=== PATIENT | male | born 1935 | race Caucasian/White ===

== ENCOUNTER → 2018-01-15 | Outpatient (CLI) | payer MEDICARE, BC ==
[~2018-01-15] MED LIST: ASPI325T17 PO; ASPI81TA59 PO; BUTA-177 PO; BUTA1CAP59 PO; CENTRUM SILVER PO; DILT30TA33 PO; GALA4TAB5 PO; GALA8TAB PO; GLUC-121 PO; LORA-445 PO; MEMA10TA PO; MEMA5TAB PO; METO25TA35 PO; NICO-487 TD; PANT40TA3 PO; TRAM50TA2 PO; VITAMIN D3 PO
== END | disposition home or self-care (01) ==
LOC: CVU 15:16
PROVIDERS: ATTEND Internal Medicine Cardiovascular Disease
DX: I08.0 Rheumatic disorders of both mitral and aortic valves (principal); I48.0 Paroxysmal atrial fibrillation; Z95.1 Presence of aortocoronary bypass graft
CPT/HCPCS: 0399T; 93306

== ENCOUNTER 2019-08-09 13:26 | Inpatient (IN) | payer MEDICARE, BC ==
[~2019-08-09] VITALS: Ht 190.5 cm; Wt 72.2 kg
[~2019-08-09 13:26] MED LIST changes: +DIGO125T PO
[2019-08-09] MEDS ORDERED: NORCO PO (13:58)
[2019-08-09] MEDS ORDERED: SEROQUEL PO (13:58)
--- NOTE | 2019-08-09 13:58 | NUR ---
PT PRESENTS TO ED BY AMBULANCE, PER EMS PT HAS ALZHIEMERS AND HAS BECOME COMBATIVE WITH . TOLD EMS THAT SHE NO LONGER FEELS ABLE TO CARE FOR PATIENT AND WOULD LIKE A MEDICAL EVAL AND PLACEMENT TO MEMORY CARE. PER EMS, [employer] WAS ON SCENE SPEAKING WITH . PT IS A&O TO PERSON WHICH IS BASELINE PER EMS. PT DENIES PAIN, RESPS ARE EVEN AND UNLABORED. PT FOLLOWS SOME COMMANDS AND IS SPEAKING CLEARLY. PT IS COOPERATIVE AT THIS TIME. EKG TAKEN ON ARRIVAL BY EDT, PT ATTACHED TO BP AND SPO2 MONITORS. PIV PLACED, LABS DRAWN. PT PLACED IN GOWN AND GIVEN WARM BLANKET. REPORT GIVEN TO RN'S CHARLEY AND CARLI, WHO ARE TO ASSUME CARE AT THIS TIME.
[2019-08-09 14:05] LABS: BASOPHILS # (AUTO) 0.03 x10^3/uL (0-0.1); BASOPHILS % (AUTO) 0 % (0-1); EOSINOPHILS # (AUTO) 0.02 x10^3/uL (0-0.4); EOSINOPHILS % (AUTO) 0 % (1-7); LYMPHOCYTES # (AUTO) 2.27 x10^3/uL (1-3.4); LYMPHOCYTES % (AUTO) 26 % (22-44); MD NO; MEAN CORPUSCULAR HEMOGLOBIN 28.5 pg (27.5-34.5); MEAN CORPUSCULAR HGB CONC 32.8 g/dL (33.2-36.2); MEAN CORPUSCULAR VOLUME 86.9 fL (81-97); MEAN PLATELET VOLUME 8.5 fL (7.4-10.4); MONOCYTES # (AUTO) 0.67 x10^3/uL (0.2-0.8); MONOCYTES % (AUTO) 8 % (2-9); NEUTROPHILS # (AUTO) 5.74 x10^3/uL (1.8-6.8); NEUTROPHILS % (AUTO) 66 % (42-75); PLATELET COUNT 217 x10^3/uL (130-400); RED BLOOD COUNT 5.23 x10^6/uL (4.38-5.82); RED CELL DISTRIBUTION WIDTH 13.8 % (9.4-14.8)
--- NOTE | 2019-08-09 14:05 | NUR ---
REPORT RECEIVED FROM JEWELL WOOD. PLAN OF CARE DISCUSSED. JEWELL WOOD COMPLETED PHYSICAL ASSESSMENT, PATIENT HAS HX ALZHEIMERS AND ORIENTED TO SELF. HAD STATED TO [facility] INCREASE IN PHYSICAL AGGRESSION. JEWELL WOOD STATED NO NEED FOR SITTER AT THIS TIME. CURTAIN TO PATIENT ROOM OPEN, IN LINE OF SIGHT OF RN AT COMPUTER STATION. WILL CONTINUE TO EVALUATE NEED FOR SITTER AND PATIENT DEMEANOR.
--- NOTE | 2019-08-09 14:10 | NUR ---
ASSOCIATE PROFESSOR OF THEATRE TO ROOM
[2019-08-09 14:12] LABS: ALBUMIN 3.4 g/dL (3.4-5.0); ANION GAP 6 mmol/L (5-15); CALCIUM 9.1 mg/dL (8.5-10.1); CHLORIDE 107 mmol/L (98-107); SALICYLATE LEVEL < 1.7 mg/dL (2.8-20.0)
[2019-08-09 14:15] LABS: ALANINE AMINOTRANSFERASE 22 U/L (12-78); BILIRUBIN,TOTAL 0.9 mg/dL (0.2-1.0); CREATININE 0.96 mg/dL (0.7-1.3); TOTAL PROTEIN 6.7 g/dL (6.4-8.2); TROPONIN I < 0.015 ng/mL (0.000-0.045)
[2019-08-09 14:17] LABS: ALKALINE PHOSPHATASE 50 U/L (45-117)
--- NOTE | 2019-08-09 14:44 | NUR ---
PATIENT RESTING ON GURNEY, RESPIRATIONS EVEN AND UNLABORED. FAMILY IN ROOM, WAITING FOR ROOM ASSIGNMENT. DENIES NEEDS AT THIS TIME.
--- NOTE | 2019-08-09 15:30 | NUR ---
FOOD TRAY ORDERED. SOFT FOODS ASKED FOR. PATIENT RESTING, RESPIRATIONS EVEN AND UNLABORED, FAMILY IN ROOM, DENIES NEEDS AT THIS TIME.
--- NOTE | 2019-08-09 16:02 | NUR ---
UNABLE TO CONTINUE Q1HR VITAL SIGN MONITORING, BP CUFF AND SPO2 SENSOR AGITATING PATIENT. PATIENT IS PINK, WARM, AND DRY, NO ACUTE DISTRESS, VSS AT THIS POINT, WILL CONTINUE WIT HQ4HR VITAL SIGNS.
--- NOTE | 2019-08-09 17:23 | NUR ---
PT SITTING UP IN [facility], REARRANGING LINENS. NAD NOTED. PT REMAINS ALERT AND ORIENTED TO SELF ONLY. PT COOPERATIVE BUT REQUIRES CONSTANT REDIRECTION. Addendum: 08/09/19 at 1726 by LWEGENER SITTER REQUESTED
[2019-08-09] MEDS ORDERED: ONDANSETRON ODT 4 MG PO PRN (17:30)
[2019-08-09] MEDS ORDERED: ONDANSETRON 2MG/ML, 2ML IVPush PRN (17:30)
[2019-08-09] MEDS ORDERED: POLYETHYLENE GLYCOL 17 GM PACKET PO PRN (17:30)
[2019-08-09] MEDS ORDERED: BISACODYL 10 MG SUPP PR PRN (17:30)
[2019-08-09] MEDS ORDERED: PROMETHAZINE 25 MG/ML, 1ML IM PRN (17:30)
[2019-08-09] MEDS ORDERED: DOCUSATE 100 MG CAPSULE PO PRN (17:30)
[2019-08-09] MEDS ORDERED: ACETAMINOPHEN 325 MG TABLET PO PRN (17:30)
[2019-08-09] MEDS ORDERED: OXYcodone IR 5MG TABLET PO PRN (17:30)
[2019-08-09] MEDS ORDERED: hydrALAzine 20 MG/ML, 1ML IVPush PRN (17:30)
[2019-08-09] MEDS ORDERED: DIAZEPAM 5 MG/ML, 2ML ONE (17:32)
--- NOTE | 2019-08-09 17:38 | NUR ---
PT OUT OF BED AND REQUIRING MULTIPLE STAFF FOR REDIRECTION. ERP AWARE. PT MEDICATED PER EMAR. TECH AT BEDSIDE. SPO2 MONITORING IN PLACE. LIGHTS OFF AND PT POSITIONED FOR COMFORT.
[2019-08-09] MEDS ORDERED: DIAZEPAM 5 MG/ML, 2ML IV ONE (18:00)
--- NOTE | 2019-08-09 18:16 | NUR ---
ATTEMPTED TO CALL REPORT, PRIMARY RN WAS IN ISO ROOM, RN ON PHONE STATED SHE WILL CALL BACK IN 5 MINUTES.
--- NOTE | 2019-08-09 18:57 | NUR ---
ATTEMPTED TO CALL REPORT SECOND TIME, ON HOLD FOR 10 MINUTES.
--- NOTE | 2019-08-09 19:12 | NUR ---
REPORT GIVEN TO JEWELL COYLE PROJECT RESERVOIR ENGINEER OF MEDICAL UNIT. PLAN OF CARE DISCUSSED.
[2019-08-09 19:45] VITALS: BP 161/79
[2019-08-10 01:04] VITALS: BP 154/73
[2019-08-10 01:06] VITALS: BP 154/73
[2019-08-10] MEDS ORDERED: SODIUM CHLORIDE 0.9% 1,000 ML IV SCH (05:00)
[2019-08-10 05:27] LABS: BASOPHILS # (AUTO) 0.03 x10^3/uL (0-0.1); BASOPHILS % (AUTO) 0 % (0-1); EOSINOPHILS # (AUTO) 0.08 x10^3/uL (0-0.4); EOSINOPHILS % (AUTO) 1 % (1-7); LYMPHOCYTES # (AUTO) 1.73 x10^3/uL (1-3.4); LYMPHOCYTES % (AUTO) 26 % (22-44); MD NO; MEAN CORPUSCULAR HEMOGLOBIN 28.9 pg (27.5-34.5); MEAN CORPUSCULAR HGB CONC 32.6 g/dL (33.2-36.2); MEAN CORPUSCULAR VOLUME 88.8 fL (81-97); MEAN PLATELET VOLUME 8.4 fL (7.4-10.4); MONOCYTES # (AUTO) 0.63 x10^3/uL (0.2-0.8); MONOCYTES % (AUTO) 10 % (2-9); NEUTROPHILS % (AUTO) 63 % (42-75); PLATELET COUNT 196 x10^3/uL (130-400); RED BLOOD COUNT 5.07 x10^6/uL (4.38-5.82); RED CELL DISTRIBUTION WIDTH 13.8 % (9.4-14.8)
[2019-08-10 05:41] LABS: CHLORIDE 108 mmol/L (98-107)
[2019-08-10 05:49] LABS: ALANINE AMINOTRANSFERASE 24 U/L (12-78); ALBUMIN 3.4 g/dL (3.4-5.0); ALKALINE PHOSPHATASE 47 U/L (45-117); BILIRUBIN,TOTAL 1.2 mg/dL (0.2-1.0); CALCIUM 9.2 mg/dL (8.5-10.1); CHOL/HDL RATIO 3.1; CHOLESTEROL, TOTAL 174 mg/dL (140-239); HDL CHOL % 32 % (26-37); HDL CHOLESTEROL (DIRECT) 56 mg/dL (40-60); LDL CHOLESTEROL,CALCULATED 97 mg/dL (54-169); LDL/HDL RATIO 1.7 (0.5-3.0); TOTAL PROTEIN 6.3 g/dL (6.4-8.2); TRIGLYCERIDES 106 mg/dL (50-200); VLDL CHOLESTEROL 21 mg/dL (0-25)
[2019-08-10 06:28] LABS: ANION GAP 4 mmol/L (5-15)
[2019-08-10 07:00] VITALS: BP 139/82
[2019-08-10] MEDS ORDERED: ACETAMINOPHEN 325 MG TABLET PO PRN (07:30)
[2019-08-10] MEDS ORDERED: HALOPERIDOL 1 MG TABLET PO PRN (07:30)
[2019-08-10] MEDS ORDERED: HALOPERIDOL 0.5 MG TABLET PO PRN (07:30)
[2019-08-10] MEDS ORDERED: VITAMIN D3 PO SCH (09:00)
[2019-08-10] MEDS: MEMANTINE 10MG TABLET PO SCH (09:53)
[2019-08-10] MEDS: LACTOBACILLUS CHEW TABLET PO SCH ×4 (09:53→21:50)
[2019-08-10] MEDS: MULTIVITAMINS/MINERALS TABLET PO SCH (09:53)
[2019-08-10] MEDS: DIGOXIN 0.125 MG TABLET PO SCH (09:53)
[2019-08-10] MEDS: PANTOPROZOLE 40MG TABLET PO SCH (09:53)
[2019-08-10] MEDS: D3 MC SCH ×3 (09:54→22:06)
[2019-08-10] MEDS: GALANTAMINE 4 MG TABLET PO SCH (09:56)
[2019-08-10] MEDS: CHOLECALCIFEROL 1,000 UNIT TABLET PO SCH (12:28)
[2019-08-10 14:00] VITALS: BP 138/77
[2019-08-10] MEDS: LORazepam 2 MG/ML, 1ML IVPush PRN (14:27)
[2019-08-10] MEDS: METOPROLOL TARTRATE 25 MG TABLET PO SCH (18:33)
[2019-08-10 19:05] VITALS: BP 143/84
[2019-08-10] MEDS: SODIUM CHLORIDE 0.9% 1,000 ML IV SCH (19:19)
[2019-08-10 20:27] VITALS: BP 143/84
[2019-08-11 00:35] VITALS: BP 138/78
[2019-08-11 02:26] VITALS: BP 138/78
[2019-08-11] MEDS: LORazepam 2 MG/ML, 1ML IVPush PRN ×2 (04:10→14:14)
[2019-08-11] MEDS: D3 MC SCH ×3 (07:30→23:30)
[2019-08-11 08:08] VITALS: BP 151/91
[2019-08-11] MEDS: CHOLECALCIFEROL 1,000 UNIT TABLET PO SCH ×2 (09:00→10:04)
[2019-08-11] MEDS: GALANTAMINE 4 MG TABLET PO SCH ×2 (09:00→10:04)
[2019-08-11] MEDS: LACTOBACILLUS CHEW TABLET PO SCH ×3 (09:00→16:00)
[2019-08-11] MEDS: PANTOPROZOLE 40MG TABLET PO SCH ×2 (09:00→10:04)
[2019-08-11] MEDS: MEMANTINE 10MG TABLET PO SCH ×2 (09:00→10:04)
[2019-08-11] MEDS: METOPROLOL TARTRATE 25 MG TABLET PO SCH ×3 (09:00→18:00)
[2019-08-11] MEDS: DIGOXIN 0.125 MG TABLET PO SCH ×2 (09:00→10:04)
[2019-08-11] MEDS: MULTIVITAMINS/MINERALS TABLET PO SCH ×2 (09:00→10:04)
[2019-08-11 09:58] VITALS: BP 157/94
[2019-08-11] MEDS: SODIUM CHLORIDE 0.9% 1,000 ML IV SCH (14:25)
[2019-08-11] MEDS: ZIPRASIDONE 20 MG INJ IM PRN (16:17)
[2019-08-11] MEDS ORDERED: MIDAZOLAM 1 MG/ML, 5ML IVPush ONE (16:30)
[2019-08-11 17:05] LABS: MICROSCOPIC AUTO
[2019-08-11 17:08] VITALS: BP 134/76
[2019-08-11 17:22] LABS: CULTURE INDICATED? YES
[2019-08-11 18:29] VITALS: BP 160/75
[2019-08-12 01:37] VITALS: BP 154/77
[2019-08-12] MEDS: METOPROLOL TARTRATE 25 MG TABLET PO SCH ×2 (05:28→20:02)
[2019-08-12] MEDS: SODIUM CHLORIDE 0.9% 1,000 ML IV SCH ×2 (05:28→22:29)
[2019-08-12 06:22] LABS: CHLORIDE 110 mmol/L (98-107)
[2019-08-12 06:29] LABS: ALANINE AMINOTRANSFERASE 24 U/L (12-78); ALBUMIN 3.3 g/dL (3.4-5.0); ALKALINE PHOSPHATASE 58 U/L (45-117); ANION GAP 9 mmol/L (5-15); BILIRUBIN,TOTAL 1.7 mg/dL (0.2-1.0); CALCIUM 8.9 mg/dL (8.5-10.1); CREATININE 0.67 mg/dL (0.7-1.3); TOTAL PROTEIN 6.9 g/dL (6.4-8.2)
[2019-08-12 06:47] LABS: BASOPHILS # (AUTO) 0.06 x10^3/uL (0-0.1); BASOPHILS % (AUTO) 1 % (0-1); EOSINOPHILS # (AUTO) 0.13 x10^3/uL (0-0.4); EOSINOPHILS % (AUTO) 1 % (1-7); LYMPHOCYTES # (AUTO) 1.54 x10^3/uL (1-3.4); LYMPHOCYTES % (AUTO) 14 % (22-44); MD SCAN; MEAN CORPUSCULAR HEMOGLOBIN 29.8 pg (27.5-34.5); MEAN CORPUSCULAR HGB CONC 33.6 g/dL (33.2-36.2); MEAN CORPUSCULAR VOLUME 88.7 fL (81-97); MEAN PLATELET VOLUME 9.2 fL (7.4-10.4); MONOCYTES # (AUTO) 0.97 x10^3/uL (0.2-0.8); MONOCYTES % (AUTO) 9 % (2-9); NEUTROPHILS # (AUTO) 8.27 x10^3/uL (1.8-6.8); NEUTROPHILS % (AUTO) 75 % (42-75); PLATELET COUNT 150 x10^3/uL (130-400); RED BLOOD COUNT 5.49 x10^6/uL (4.38-5.82); RED CELL DISTRIBUTION WIDTH 13.5 % (9.4-14.8)
[2019-08-12 07:00] VITALS: BP 132/76
[2019-08-12] MEDS: D3 MC SCH ×2 (07:30→15:30)
[2019-08-12] MEDS: MULTIVITAMINS/MINERALS TABLET PO SCH (08:31)
[2019-08-12] MEDS: LACTOBACILLUS CHEW TABLET PO SCH ×3 (08:31→20:02)
[2019-08-12] MEDS: PANTOPROZOLE 40MG TABLET PO SCH (08:31)
[2019-08-12] MEDS: CHOLECALCIFEROL 1,000 UNIT TABLET PO SCH (08:32)
[2019-08-12] MEDS: DIGOXIN 0.125 MG TABLET PO SCH (08:42)
[2019-08-12] MEDS: GALANTAMINE 4 MG TABLET PO SCH (08:43)
[2019-08-12] MEDS: MEMANTINE 10MG TABLET PO SCH (08:43)
[2019-08-12 09:30] VITALS: BP 157/100
[2019-08-12] MEDS: ZIPRASIDONE 20 MG INJ IM PRN (10:41)
[2019-08-12] MEDS ORDERED: LORazepam 2 MG/ML, 1ML IVPush ONE (14:30)
[2019-08-12 15:42] VITALS: BP 159/94
[2019-08-12 19:58] VITALS: BP 178/98
[2019-08-12 22:31] VITALS: BP 166/89
[2019-08-13 01:02] VITALS: BP 126/69
[2019-08-13] MEDS: METOPROLOL TARTRATE 25 MG TABLET PO SCH ×2 (05:56→20:36)
[2019-08-13 06:03] VITALS: BP 118/68
[2019-08-13 06:17] LABS: ANION GAP 6 mmol/L (5-15); CHLORIDE 108 mmol/L (98-107); CREATININE 0.79 mg/dL (0.7-1.3)
[2019-08-13 06:27] LABS: BASOPHILS # (AUTO) 0.03 x10^3/uL (0-0.1); BASOPHILS % (AUTO) 0 % (0-1); EOSINOPHILS # (AUTO) 0.11 x10^3/uL (0-0.4); EOSINOPHILS % (AUTO) 1 % (1-7); LYMPHOCYTES # (AUTO) 1.53 x10^3/uL (1-3.4); LYMPHOCYTES % (AUTO) 14 % (22-44); MD NO; MEAN CORPUSCULAR HEMOGLOBIN 29.1 pg (27.5-34.5); MEAN CORPUSCULAR HGB CONC 32.9 g/dL (33.2-36.2); MEAN CORPUSCULAR VOLUME 88.6 fL (81-97); MEAN PLATELET VOLUME 8.9 fL (7.4-10.4); MONOCYTES # (AUTO) 0.94 x10^3/uL (0.2-0.8); MONOCYTES % (AUTO) 9 % (2-9); NEUTROPHILS % (AUTO) 75 % (42-75); PLATELET COUNT 195 x10^3/uL (130-400); RED BLOOD COUNT 5.38 x10^6/uL (4.38-5.82); RED CELL DISTRIBUTION WIDTH 13.9 % (9.4-14.8)
[2019-08-13] MEDS: LACTOBACILLUS CHEW TABLET PO SCH ×3 (07:33→20:35)
[2019-08-13] MEDS: MULTIVITAMINS/MINERALS TABLET PO SCH (07:33)
[2019-08-13] MEDS: PANTOPROZOLE 40MG TABLET PO SCH (07:33)
[2019-08-13] MEDS: CHOLECALCIFEROL 1,000 UNIT TABLET PO SCH (07:33)
[2019-08-13] MEDS: GALANTAMINE 4 MG TABLET PO SCH (08:28)
[2019-08-13] MEDS: MEMANTINE 10MG TABLET PO SCH (08:28)
[2019-08-13] MEDS: DIGOXIN 0.125 MG TABLET PO SCH (08:28)
[2019-08-13] MEDS: ZIPRASIDONE 20 MG INJ IM PRN (08:28)
[2019-08-13 15:48] VITALS: BP 145/95
[2019-08-13] MEDS: SODIUM CHLORIDE 0.9% 1,000 ML IV SCH (16:44)
[2019-08-13 20:27] VITALS: BP 154/48
[2019-08-14 00:14] VITALS: BP 159/84
[2019-08-14] MEDS: METOPROLOL TARTRATE 25 MG TABLET PO SCH ×2 (06:07→18:39)
[2019-08-14 06:29] VITALS: BP 146/81
[2019-08-14] MEDS: SODIUM CHLORIDE 0.9% 1,000 ML IV SCH ×2 (07:30→23:46)
[2019-08-14 08:12] LABS: BASOPHILS # (AUTO) 0.09 x10^3/uL (0-0.1); BASOPHILS % (AUTO) 1 % (0-1); EOSINOPHILS # (AUTO) 0.09 x10^3/uL (0-0.4); EOSINOPHILS % (AUTO) 1 % (1-7); LYMPHOCYTES # (AUTO) 1.42 x10^3/uL (1-3.4); LYMPHOCYTES % (AUTO) 14 % (22-44); MD NO; MEAN CORPUSCULAR HEMOGLOBIN 28.7 pg (27.5-34.5); MEAN CORPUSCULAR VOLUME 87.1 fL (81-97); MEAN PLATELET VOLUME 8.6 fL (7.4-10.4); MONOCYTES # (AUTO) 0.94 x10^3/uL (0.2-0.8); MONOCYTES % (AUTO) 9 % (2-9); NEUTROPHILS # (AUTO) 7.74 x10^3/uL (1.8-6.8); NEUTROPHILS % (AUTO) 75 % (42-75); PLATELET COUNT 201 x10^3/uL (130-400); RED BLOOD COUNT 5.24 x10^6/uL (4.38-5.82); RED CELL DISTRIBUTION WIDTH 13.6 % (9.4-14.8)
[2019-08-14 08:22] LABS: ANION GAP 6 mmol/L (5-15); CALCIUM 8.6 mg/dL (8.5-10.1); CHLORIDE 108 mmol/L (98-107); CREATININE 0.73 mg/dL (0.7-1.3)
[2019-08-14] MEDS: MULTIVITAMINS/MINERALS TABLET PO SCH (09:21)
[2019-08-14] MEDS: MEMANTINE 10MG TABLET PO SCH (09:21)
[2019-08-14] MEDS: PANTOPROZOLE 40MG TABLET PO SCH (09:22)
[2019-08-14] MEDS: LACTOBACILLUS CHEW TABLET PO SCH ×3 (09:22→22:03)
[2019-08-14] MEDS: CHOLECALCIFEROL 1,000 UNIT TABLET PO SCH (09:22)
[2019-08-14] MEDS: GALANTAMINE 4 MG TABLET PO SCH (09:22)
[2019-08-14] MEDS: DIGOXIN 0.125 MG TABLET PO SCH (09:23)
[2019-08-14 14:00] VITALS: BP 142/72
[2019-08-14] MEDS ORDERED: HALOPERIDOL 5 MG/ML IM PRN (18:00)
[2019-08-14] MEDS ORDERED: HALOPERIDOL 2 MG TABLET PO PRN (18:00)
[2019-08-14 20:11] VITALS: BP 142/71
[2019-08-14] MEDS: QUETIAPINE 25MG TABLET PO SCH (22:03)
[2019-08-15 02:50] VITALS: BP 146/75
[2019-08-15 06:13] LABS: BASOPHILS # (AUTO) 0.06 x10^3/uL (0-0.1); BASOPHILS % (AUTO) 1 % (0-1); EOSINOPHILS # (AUTO) 0.17 x10^3/uL (0-0.4); EOSINOPHILS % (AUTO) 2 % (1-7); LYMPHOCYTES # (AUTO) 1.48 x10^3/uL (1-3.4); LYMPHOCYTES % (AUTO) 17 % (22-44); MD NO; MEAN CORPUSCULAR HEMOGLOBIN 29.1 pg (27.5-34.5); MEAN CORPUSCULAR VOLUME 88.2 fL (81-97); MEAN PLATELET VOLUME 9.2 fL (7.4-10.4); MONOCYTES # (AUTO) 0.95 x10^3/uL (0.2-0.8); MONOCYTES % (AUTO) 11 % (2-9); NEUTROPHILS # (AUTO) 6.24 x10^3/uL (1.8-6.8); NEUTROPHILS % (AUTO) 70 % (42-75); PLATELET COUNT 196 x10^3/uL (130-400); RED BLOOD COUNT 5.13 x10^6/uL (4.38-5.82); RED CELL DISTRIBUTION WIDTH 13.6 % (9.4-14.8)
[2019-08-15 06:25] LABS: ANION GAP 7 mmol/L (5-15); CALCIUM 8.8 mg/dL (8.5-10.1); CHLORIDE 109 mmol/L (98-107); CREATININE 0.58 mg/dL (0.7-1.3)
[2019-08-15] MEDS: METOPROLOL TARTRATE 25 MG TABLET PO SCH ×2 (06:27→17:41)
[2019-08-15] MEDS ORDERED: POTASSIUM CHLORIDE 20 MEQ TAB.ER.PRT PO ONE (07:30)
[2019-08-15 08:08] VITALS: BP 136/73
[2019-08-15] MEDS: DIGOXIN 0.125 MG TABLET PO SCH (10:58)
[2019-08-15] MEDS: MEMANTINE 10MG TABLET PO SCH (10:59)
[2019-08-15] MEDS: GALANTAMINE 4 MG TABLET PO SCH (11:00)
[2019-08-15] MEDS: LACTOBACILLUS CHEW TABLET PO SCH ×3 (11:00→21:39)
[2019-08-15] MEDS: QUETIAPINE 25MG TABLET PO SCH ×2 (11:01→21:40)
[2019-08-15] MEDS: CHOLECALCIFEROL 1,000 UNIT TABLET PO SCH (11:02)
[2019-08-15] MEDS: MULTIVITAMINS/MINERALS TABLET PO SCH (11:06)
[2019-08-15] MEDS: PANTOPROZOLE 40MG TABLET PO SCH (11:07)
[2019-08-15 12:53] VITALS: BP 129/77
[2019-08-15 19:34] VITALS: BP 158/80
[2019-08-16 02:36] VITALS: BP 157/82
[2019-08-16] MEDS ORDERED: SODIUM CHLORIDE 0.9% 1,000 ML IV SCH (05:00)
[2019-08-16] MEDS: METOPROLOL TARTRATE 25 MG TABLET PO SCH (05:20)
[2019-08-16 06:01] LABS: CHLORIDE 108 mmol/L (98-107)
[2019-08-16 06:12] LABS: ANION GAP 6 mmol/L (5-15); CALCIUM 9.1 mg/dL (8.5-10.1); CREATININE 0.69 mg/dL (0.7-1.3)
[2019-08-16 07:51] VITALS: BP 132/61
[2019-08-16] MEDS: PANTOPROZOLE 40MG TABLET PO SCH (08:50)
[2019-08-16] MEDS: LACTOBACILLUS CHEW TABLET PO SCH (08:50)
[2019-08-16] MEDS: MEMANTINE 10MG TABLET PO SCH (08:50)
[2019-08-16] MEDS: GALANTAMINE 4 MG TABLET PO SCH (08:51)
[2019-08-16] MEDS: MULTIVITAMINS/MINERALS TABLET PO SCH (08:51)
[2019-08-16] MEDS: DIGOXIN 0.125 MG TABLET PO SCH (08:51)
[2019-08-16] MEDS: QUETIAPINE 25MG TABLET PO SCH (08:51)
[2019-08-16] MEDS: CHOLECALCIFEROL 1,000 UNIT TABLET PO SCH (08:51)
[2019-08-16] MEDS ORDERED: ACET325T26 PO (10:37)
[2019-08-16] MEDS ORDERED: CHOL10003 PO (10:37)
[2019-08-16] MEDS ORDERED: HYDR-3341 PO (10:37)
[2019-08-16] MEDS ORDERED: ACID1TAB7 PO (10:37)
[2019-08-16] MEDS ORDERED: QUET25TA7 PO (10:37)
[2019-08-16 12:54] VITALS: BP 121/72
== END 2019-08-16 16:56 | disposition home or self-care (01) | DRG 57 ==
LOC: EDBD → MERGE 13:26 → ED 14:26 → EDIP 14:27 → ED 14:45 → 3N 19:25
PROVIDERS: ADMIT Internal Medicine; ATTEND Internal Medicine
PROC: 0T9B70Z Drainage of Bladder with Drainage Device, Via Natural or Artificial Opening (ICD-10-PCS; principal; 2019-08-11)
DX: G30.8 Other Alzheimer's disease (principal); F02.81 Dementia in other diseases classified elsewhere, unspecified severity, with behavioral disturbance; D68.69 Other thrombophilia; I48.0 Paroxysmal atrial fibrillation; E80.4 Gilbert syndrome; E87.6 Hypokalemia; I10 Essential (primary) hypertension; I49.5 Sick sinus syndrome; R33.9 Retention of urine, unspecified; R45.1 Restlessness and agitation; N47.1 Phimosis; Z66 Do not resuscitate; Z82.0 Family history of epilepsy and other diseases of the nervous system; Z82.49 Family history of ischemic heart disease and other diseases of the circulatory system; Z87.11 Personal history of peptic ulcer disease; Z87.19 Personal history of other diseases of the digestive system; Z95.0 Presence of cardiac pacemaker
CPT/HCPCS: 36415; 70450; 71045; 80048; 80053; 80061; 80162; 80307; 81001; 82140; 82306; 82607; 83036; 83605; 83735; 84100; 84439; 84443; 84484; 85025; 86480; 87040; 87086; 93005; 99285; G0378; J3360; J3486; J1630; J2060; J7030